=== PATIENT | male | born 1960 | race Caucasian/White ===

== ENCOUNTER 2019-07-24 11:18 | Emergency (ER) | payer BC ==
[2019-07-24 11:35] VITALS: BP 178/99; PULSE 97; O2SAT 98
--- NOTE | 2019-07-24 11:43 | ERPHSYRPT ---
- History of Present Illness Time Seen by Provider: 07/24/19 11:35 Source: patient Exam Limitations: no limitations Patient Subjective Stated Complaint: Pt was helping move some furniture and lost his footing and fell back onto his right shoulder blade, pt stated that he had a very sharp pain that has been downgraded into a constant less painful pain , medics did go to the scene and check him out Triage Nursing Assessment: Pt brought to the ER by his , hypertensive, rates pain 3/10, denies losing consciousness, denies any other injuries, no visible bruising or swelling, doesn't appear to be in any distress Physician History: About 80 minutes ago at pt's son's residence pt was standing on the porch which according to the pt's is only a few inches off the ground, lost his footing and fell on the ground on his right shoulder with resultant pain in his right scapula. pt states initially he had some tingling in his right hand but this was transient. pt denies any other injury and denies previous injury to his right shoulder. Allergies/Adverse Reactions: No Known Drug Allergies Allergy (Verified 07/24/19 11:35) Home Medications: Beta-Carotene(A) W-C & E/Min [Ocuvite Tablet] 1 tab PO DAILY 07/24/19 [ History] Canagliflozin [Invokana] 300 mg PO QAM 07/24/19 [History] Dulaglutide [Trulicity] 1.5 mg SQ WEEKLY 07/24/19 [History] Losartan Potassium 100 mg PO DAILY 07/24/19 [History] Omeprazole Magnesium [Prilosec Otc] 20 mg PO DAILY 07/24/19 [History] hydroCHLOROthiazide [Hydrochlorothiazide] 25 mg PO DAILY 07/24/19 [History] Travel Risk - International Travel Have you traveled outside of the country in past 3 weeks: No Have you or anyone close to you been diagnosed with or: No Do your reside in a community with a known COVID-19 case?: No - Coronavirus Screening Has patient experienced Coronavirus symptoms: No - Review of Systems Musculoskeletal: Joint Pain (right shoulder - today.) - Past Medical History Pertinent Past Medical History: Yes Cardiac History: High Cholesterol, Hypertension Endocrine Medical History: Diabetes Type II - Past Surgical History Past Surgical History: Yes Gastrointestinal: Hemorrhoidectomy - Social History Smoking Status: Former smoker Exposure to second hand smoke: No Drug Use: none Patient Lives Alone: No - Nursing Vital Signs Nursing Vital Signs: Initial Vital Signs Temperature 98.1 F 07/24/19 11:27 Pulse Rate 97 H 07/24/19 11:27 Blood Pressure 178/99 07/24/19 11:27 O2 Sat by Pulse Oximetry 98 07/24/19 11:27 Pain Scale Pain Intensity 3 - Physical Exam General Appearance: alert Shoulder Exam: non-tender, normal ROM, No ecchymosis Elbow/Forearm Exam: normal ROM Wrist Exam: normal ROM Hand Exam: normal ROM Mental Status Exam: alert, cooperative Skin Exam: warm, dry SpO2 Interpretation: normal SpO2: 98 O2 Delivery: Room Air - Course Nursing assessment & vital signs reviewed: Yes - Radiology Exams Right Shoulder X-ray Interpretation: Interpreted by me (no fx) Ordered Tests: Active Orders 24 hr Category Date Time Status Sling Application STAT Care 07/24/19 11:43 Active SHOULDER Stat Exams 07/24/19 11:43 Ordered Medication Summary Discontinued Medications Generic Name Dose Route Start Last Admin Trade Name Freq PRN Reason Stop Dose Admin Hydrocodone Bitart/Acetaminophen 2 tab 07/24/19 12:23 [place] 5/325 Mg PO 07/24/19 12:24 STAT ONE - Progress Progress: unchanged - Departure Departure Disposition: Home Clinical Impression: Sprain of right shoulder Condition: Stable Critical Care Time: No Referrals: RUFINO CASTRO [Primary Care Provider] - Instructions: Shoulder Sprain (DC) Additional Instructions: Wear right arm sling for comfort. Follow up with private doctor tomorrow. Prescriptions: Naproxen 500 mg [Naprosyn 500 MG] 500 mg PO Q12H PRN PRN #20 tablet PRN Reason: Pain
[2019-07-24] MEDS ORDERED: NORCO 5/325 MG PO ONE (12:23)
[2019-07-24] MEDS ORDERED: NORCO 5/325 MG ONE (12:25)
--- NOTE | 2019-07-24 19:04 | XRAY ---
Indication: Pain following trauma. Comparison: None 3 views of the right shoulder demonstrates mild AC degenerative arthropathy and tiny upper arm soft tissue calcified granuloma. No other bony, articular, or soft tissue abnormalities.
== END 2019-07-24 12:30 | disposition home or self-care (01) ==
LOC: ED 11:18
DX: S43.401A Unspecified sprain of right shoulder joint, initial encounter (principal); W18.30XA Fall on same level, unspecified, initial encounter; I10 Essential (primary) hypertension; E11.9 Type 2 diabetes mellitus without complications; Z79.899 Other long term (current) drug therapy
CPT/HCPCS: 73030; 99283; A9270-GY